=== PATIENT | female | born 1995 | race Caucasian/White ===

== ENCOUNTER 2019-02-19 11:04 | Emergency (ER) | payer OTHER ==
[~2019-02-19] VITALS: Ht 162.6 cm; Wt 98.2 kg
[2019-02-19 11:20] VITALS: TEMP 97.4
[2019-02-19] MEDS ORDERED: ZITHROMAX Z PA250 MG PO (12:09)
[2019-02-19] MEDS ORDERED: PREDNISONE20 MG PO (12:09)
[2019-02-19 12:28] VITALS: BP 108/72; PULSE 103
== END 2019-02-19 12:29 | disposition home or self-care (01) ==
LOC: COL.ER 11:04
DX: J20.9 Acute bronchitis, unspecified (principal); F17.210 Nicotine dependence, cigarettes, uncomplicated

== ENCOUNTER 2019-10-09 15:31 | Emergency (ER) | payer SELFPAY ==
[~2019-10-09 15:31] MED LIST: PREDNISONE20 MG PO; ZITHROMAX Z PA250 MG PO
== END 2019-10-09 15:58 | disposition left against medical advice (07) ==
LOC: COL.ER 15:31
DX: Z72.9 Problem related to lifestyle, unspecified (principal)

== ENCOUNTER 2019-10-21 19:16 | Emergency (ER) | payer SELFPAY ==
[~2019-10-21] VITALS: Ht 160 cm; Wt 97.7 kg
[2019-10-21 19:19] VITALS: TEMP 98.2
[2019-10-21 19:59] LABS: STREP SCREEN NEGATIVE
[2019-10-21] MEDS ORDERED: ZITHROMAX Z PA250 MG PO (20:27)
[2019-10-21 20:46] VITALS: BP 131/78; PULSE 90
== END 2019-10-21 20:46 | disposition home or self-care (01) ==
LOC: COL.ER 19:16
PROVIDERS: Physician Assistant
DX: J04.0 Acute laryngitis (principal)